=== PATIENT | female | born 1970 | race Caucasian/White ===

== ENCOUNTER → 2018-01-07 08:56 | Outpatient (CLI) | payer BC, SELFPAY ==
--- NOTE | 2018-01-07 11:03 | XR_ITS ---
XR foot LT min 3V HISTORY: ITS.REASON: LEFT HEEL PAIN ORDERING PHYSICIAN: Rosie Pacheco DPM PATIENT AGE: 47 years COMPARISON: None FINDINGS: Weightbearing views are performed. Mild hypertrophic changes are present along the medial aspect of the distal phalanx of the great toe No fracture or dislocation. No lytic or blastic change. There is normal mineralization.. The joint spaces are well-preserved. No significant degenerative/arthritic changes. No erosive changes evident. There is a small calcaneal spur measuring 6 mm without obvious erosive change. IMPRESSION: Small calcaneal spur otherwise negative
--- NOTE | 2018-01-07 11:03 | XR_ITS ---
XR foot RT min 3V HISTORY: ITS.REASON: LEFT HEEL PAIN ORDERING PHYSICIAN: Rosie Pacheco DPM PATIENT AGE: 47 years COMPARISON: None FINDINGS: Weightbearing views are performed. No fracture or dislocation. No lytic or blastic change. There is normal mineralization.. The joint spaces are well-preserved. No significant degenerative/arthritic changes. No erosive changes evident. There is a small calcaneal spur measuring 5 mm without obvious erosive change. There are some hypertrophic changes along the medial aspect of the distal phalanx of the great toe IMPRESSION: Small calcaneal spur otherwise negative right foot
== END ==
PROVIDERS: Visit Provider Podiatrist
DX: M72.2 Plantar fascial fibromatosis (principal); M79.672 Pain in left foot
CPT/HCPCS: 73630

== ENCOUNTER → 2018-06-07 10:44 | Outpatient (CLI) | payer BC, SELFPAY ==
[2018-06-07 11:37] LABS: Basophils % 0.6 % (0.1-2.0); Eosinophils # 0.6 K/mm3 (0.0-0.4); Eosinophils % 8.4 % (0.1-12.0); Hematocrit 35.2 % (37.0-47.0); Hemoglobin 11.9 g/dL (12.2-16.2); Lymphocytes # 1.2 K/mm3 (0.7-4.5); Lymphocytes % 17.1 K/mm3 (10-50); Mean Corpuscular HGB Conc 33.9 g/dL (31.8-35.4); Mean Corpuscular Hemoglobin 34.8 pg (27.0-31.2); Mean Corpuscular Volume 102.8 fl (81-99); Monocytes # 0.2 K/mm3 (0.1-1.0); Monocytes % 3.5 % (1.7-9.3); Neutrophils # 4.7 K/mm3 (1.8-7.8); Neutrophils % 70.4 % (37.0-80.0); Platelet Count 237 K/mm3 (142-424); Red Blood Count 3.43 M/mm3 (4.20-5.40); Red Cell Distribution Width 13.2 % (11.5-17.5); White Blood Count 6.7 K/mm3 (4.8-10.8)
[2018-06-07 12:16] LABS: Alanine Aminotransferase 22 U/L (12-78); Albumin Level 3.7 gm/dL (3.4-5.0); Albumin/Globulin Ratio 1.1 (1.1-1.8); Alkaline Phosphatase 88 U/L (46-116); Anion Gap 9.2 mEq/L (5-15); Aspartate Amino Transferase 9 U/L (15-37); Bilirubin,Total 0.2 mg/dL (0.2-1.0); Blood Urea Nitrogen 10 mg/dL (7-18); Calcium 8.3 mg/dL (8.5-10.1); Carbon Dioxide 29 mmol/L (21.0-32.0); Chloride 109 mmol/L (98-107); Chol/HDL Ratio 2.1 (1-3.5); Cholesterol 108 mg/dL (140-200); Creatinine,Serum 0.51 mg/dL (0.55-1.02); Estimated Glomerular Filt Rate 128 ml/min (>60); GFR (African American) 155 ML/MIN (>60); Globulin 3.4 gm/dl (1.3-3.2); Glucose 97 mg/dL (74-106); HDL Cholesterol 51 mg/dL (29-89); LDL Cholesterol 48 mg/dL (0-130); Potassium 4.2 mmoL/L (3.5-5.1); Sodium 143 mmol/L (136-145); Total Protein,Serum 7.1 gm/dL (6.4-8.2); Triglycerides 45 mg/dL (30-200); VLDL Cholesterol 9 mg/dL (0-40)
== END ==
PROVIDERS: Visit Provider Nurse Practitioner Family
DX: Z00.00 Encounter for general adult medical examination without abnormal findings (principal); I10 Essential (primary) hypertension
CPT/HCPCS: 36415; 80053; 80061; 85025

== ENCOUNTER → 2018-07-09 13:32 | Outpatient (CLI) | payer BC, SELFPAY ==
--- NOTE | 2018-07-09 13:35 | US_ITS ---
US transvaginal HISTORY: Dysfunctional uterine bleeding ITS.REASON: dub ORDERING PHYSICIAN: Khari Maier MD PATIENT AGE: 48 years Comparison: None FINDINGS: The uterus is 8 x 5 x 6 cm. The endometrium is thickened at 1.2 cm. There is a nabothian cyst. Right ovary is 3.5 x 2.8 x 3 cm and contains a 3 cm cyst. No obvious internal septations The blood flow to the right ovary. The left ovary is 2.2 x 1.7 cm and contains a 7 mm follicle. Blood flow present. There is a small amount cul-de-sac fluid. IMPRESSION: 1. Thickened endometrium. 2. 3 cm right ovarian cyst
== END ==
PROVIDERS: Family Provider Internal Medicine Adolescent Medicine; PCP Internal Medicine Adolescent Medicine; Visit Provider Obstetrics & Gynecology
DX: N93.8 Other specified abnormal uterine and vaginal bleeding (principal)
CPT/HCPCS: 76830

== ENCOUNTER → 2018-07-14 14:34 | Outpatient (CLI) | payer BC, SELFPAY ==
[2018-07-14 14:38] LABS: Microscopic, Urine URINE MICROSCOPIC (MICROSCOPIC)
[2018-07-14 15:00] LABS: Basophils # 0.1 K/mm3 (0-0.2); Eosinophils # 0.9 K/mm3 (0.0-0.4); Eosinophils % 13.1 % (0.1-12.0); Hematocrit 39.8 % (37.0-47.0); Hemoglobin 12.5 g/dL (12.2-16.2); Lymphocytes # 1.9 K/mm3 (0.7-4.5); Lymphocytes % 26.3 K/mm3 (10-50); Mean Corpuscular HGB Conc 31.4 g/dL (31.8-35.4); Mean Corpuscular Hemoglobin 32.2 pg (27.0-31.2); Mean Corpuscular Volume 102.3 fl (81-99); Mean Platelet Volume 8.1 fl (7.4-10.4); Monocytes # 0.3 K/mm3 (0.1-1.0); Monocytes % 4.4 % (1.7-9.3); Neutrophils # 3.9 K/mm3 (1.8-7.8); Neutrophils % 55.3 % (37.0-80.0); Platelet Count 260 K/mm3 (142-424); Red Blood Count 3.89 M/mm3 (4.20-5.40); Red Cell Distribution Width 14.6 % (11.5-17.5); White Blood Count 7.1 K/mm3 (4.8-10.8)
--- NOTE | 2018-07-14 15:00 | XR_ITS ---
XR chest 2V HISTORY: ITS.REASON: HTN ORDERING PHYSICIAN: Khari Maier MD PATIENT AGE: 48 years Technique: PA and lateral chest COMPARISON: PA and lateral chest FINDINGS: Stable chest with nothing definitely acute. The lungs appear clear with no active disease. Stable small calcified granuloma left upper lung with small calcified left hilar nodes. Heart maureen and mediastinal structures satisfactory.. Heart upper normal size. Chest wall and T-spine stable. Satisfactory. IMPRESSION stable chest nothing definitely acute.
[2018-07-14 15:08] LABS: Appearance,Urine CLEAR (Clear); Bilirubin,Urine Negative (Negative); Blood, Urine 2+ (Negative); Color,Urine YELLOW (Yellow); Glucose,Urine (UA) Negative (Negative); Ketones,Urine Negative (Negative); Leukocyte Esterase,Urine Negative (Negative); Nitrate,Urine Negative (Negative); Protein,Urine Negative (Negative)
[2018-07-14 15:35] LABS: Bacteria,Urine 2+ /lpf; WBC,Urine Occasional #/hpf (0-3)
[2018-07-14 15:45] LABS: Alanine Aminotransferase 19 U/L (12-78); Albumin Level 3.7 gm/dL (3.4-5.0); Albumin/Globulin Ratio 1.1 (1.1-1.8); Alkaline Phosphatase 83 U/L (46-116); Anion Gap 10.4 mEq/L (5-15); Aspartate Amino Transferase 8 U/L (15-37); Bilirubin,Total 0.1 mg/dL (0.2-1.0); Blood Urea Nitrogen 16 mg/dL (7-18); Calcium 8.5 mg/dL (8.5-10.1); Carbon Dioxide 31 mmol/L (21.0-32.0); Chloride 101 mmol/L (98-107); Creatinine,Serum 0.58 mg/dL (0.55-1.02); Estimated Glomerular Filt Rate 110 ml/min (>60); GFR (African American) 133 ML/MIN (>60); Globulin 3.4 gm/dl (1.3-3.2); Glucose 95 mg/dL (74-106); Potassium 4.4 mmoL/L (3.5-5.1); Sodium 138 mmol/L (136-145); Total Protein,Serum 7.1 gm/dL (6.4-8.2)
== END ==
PROVIDERS: Visit Provider Obstetrics & Gynecology
DX: Z01.818 Encounter for other preprocedural examination (principal); N93.8 Other specified abnormal uterine and vaginal bleeding; D25.9 Leiomyoma of uterus, unspecified; R10.2 Pelvic and perineal pain
CPT/HCPCS: 36415; 71046; 80053; 81001; 85025; 87086; 93005

== ENCOUNTER 2018-07-17 06:01 | Observation (INO) ==
--- NOTE | 2018-07-17 06:49 | Progress Note ---
[facility] Anesthesia Checklist - Patient Identification Patient Identification: Arm Band, Verbal (Name & ) - Structural Data Admitted From: Home Planned Operative Procedure/s: TVH, BSO Consent for Planned Operative Procedure(s) Verified: Yes Verified Documents: Surgical Consent, History and Physical - NPO Status Verified Time NPO: 22:30 - Additional verifications Patient : No Anesthesia Reactions: No - Airway Assessment C-Spine Mobility Assessed: Yes TMJ Mobility Assessed: Yes Dentition: Partials (lower) - Neurological Assessment Level of Consciousness: Awake Hx Seizures: No Numbness or tingling in extremities: No - Anesthesia Plan Anesthesia Risk discussed: Yes Anesthesia Plan: Verified ASA Class: III Anesthesia Type: General [facility] Anesthesia HX I have reviewed the patient's past medical history: Yes Medical History: Reports:: Anxiety, Chronic Obstructive Pulmonary Disease (COPD) , Hyperlipidemia, Hypertension Denies:: Cancer, Diabetes Mellitus Type 1, Diabetes Mellitus Type 2, Internal Pacemaker, MRSA, Seizures Other Medical History: Reports: Other (smokes tobacco). Denies: Blood Transfusion Reaction Laterality Cases: Bilateral: Other Other Surgeries: Yes: , Dilation and Curettage. No: Pacemaker Amputation: No Fractures: No *Family Hx:: No significant family history
--- NOTE | 2018-07-17 08:35 | Progress Note ---
[facility] Anesthesia Record Part II Discharge Time: 09:02 Destination: Obstetric Gynecology Dept PACU nurse assessment reviewed?: Yes Patient Condition:: Good Anesthesia Complications:: None
--- NOTE | 2018-07-17 08:35 | Progress Note ---
[facility] Anesthesia Record Part I Intake, IV Amount: 900 Estimated blood loss (mL): 300 Urine output (mL): 30 Blood Products used (#): none Blood Pressure: 113/71 SaO2: 98 Pulse Rate: 49 Respiratory Rate: 18 Temperature: 97.3 F Patient is:: Drowsy, Stable Stable to PACU at:: 08:32
--- NOTE | 2018-07-17 08:36 | Operative Note ---
Date of procedure: 07/17/18 Pre-op Diagnosis:: 1. Dysfunctional uterine bleeding. 2. Leiomyomata uteri. 3. Pelvic pain. 4. Right ovarian cyst. Post-op Diagnosis:: 1. Dysfunctional uterine bleeding. 2. Leiomyomata uteri. 3. Adenomyosis. 4. Pelvic pain. 5. Right ovarian cyst. Procedure performed:: Total vaginal hysterectomy and bilateral salpingo-oophorectomy Surgeon:: Khari Maier MD Cooky Packer(s):: Dr. Corral INSTRUMENT REPAIR TECHNICIAN:: Ck Bueno Anesthesia: GETA Estimated blood loss (mL): 300 Operative findings:: Boggy adenomyomatous uterus, with right ovarian cyst. Operative note:: After the patient was prepped and draped in the usual fashion and general anesthesia was administered, a weighted speculum was placed within the posterior fourchette of the vagina, and the cervix was grasped with a double- tooth tenaculum, and retracted toward the introitus. Descensus was moderate. The cervix was circumcised with a knife, and the vaginal mucosa was sharply and bluntly dissected free. A posterior colpotomy incision was made with Josef scissors, and the long lip of the weighted speculum was placed within the posterior peritoneum. The uterosacral ligaments on either side were Renetta clamped, and 1 Vicryl, as were the cardinal ligaments and uterine vessels. The anterior peritoneum was entered with Josef scissors, and a long right angle retractor was placed within it. The boggy uterus was flipped anteriorly, and the ovarian pedicles were crossclamped and cut, thus removing the uterine specimen. These pedicles were Renetta sutured, and then free tied with #1 Vicryl. The left ovary was more atrophic than the right, which contained a 4 cm clear cyst. Each tube showed evidence of previous ligation with Fallope- Rings. Each adnexa was grasped with a [place] clamp, and the infundibulopelvic ligament on either side was Renetta clamped, cut, and Renetta suture with #1 Vicryl, and then free tied with #1 Vicryl. Inspection of all the pedicles revealed them to be hemostatic. The posterior vaginal cuff was run unlocked with #1 Vicryl, to include the uterosacral ligament pedicles, and a Burgess fashion, to reduce the enterocele. The anterior peritoneum was grasped with a long Allis clamp, and closed with a running pursestring suture of 0 Vicryl, and pulled tight. The vaginal mucosa was closed with an anteroposterior running locked suture of #1 Vicryl. The urine was clear in the Medina catheter. The sponge and needle count was correct. Estimated blood loss was 300 cc. The patient tolerated the procedure well, and was taken to PACU in excellent condition. Condition: stable Disposition: PACU Specimens:: Uterus and both adnexa Complications:: None
[2018-07-17 09:57] LABS: Hemoglobin 12.7 g/dL (12.2-16.2)
--- NOTE | 2018-07-17 12:55 | Progress Note ---
Internal Medicine - PN: Subj *Date: 07/17/18 *Time: 12:54 (This is day of surgery. Surgery has been explained to the patient. She is afebrile. Her vital signs are stable. Blood pressure is somewhat elevated with moderate pain control issues at this time. Urine output is good. Impression: Stable.) Exam Vital signs and Labs for Last 24 Hours: Temp Pulse Resp BP Pulse Ox 97.6 F 60 16 178/87 98 07/17/18 10:30 07/17/18 12:30 07/17/18 12:30 07/17/18 12:30 07/17/18 12:30 Laboratory Results - last 24 hr 07/17/18 07:20: Urine HCG, Qual Negative 07/17/18 07:20: Urine Color Yellow, Urine Appearance Sl cloudy, Urine pH 6.0, Ur Specific [place] >= 1.030, Urine Protein Trace, Urine Glucose (UA) Negative, Urine Ketones Trace, Urine Blood Negative, Urine Nitrate Negative, Urine Bilirubin Negative, Urine Urobilinogen 1.0, Ur Leukocyte Esterase Negative, Urine RBC None, Urine WBC None, Ur Squamous Epith Cells 5-10, Urine Bacteria Trace, Hyaline Casts 3-5 07/17/18 09:35: Hgb 12.7, Hct 40.0 I & O for Last 24 hours: Intake & Output 07/15/18 07/16/18 07/17/18 07/18/18 11:59 11:59 11:59 11:59 Intake Total 975 / 975 Output Total 25 / 25 Balance 950 / 950 Weight 133 lb
--- NOTE | 2018-07-18 07:02 | Progress Note ---
Internal Medicine - PN: Subj *Date: 07/18/18 *Time: 07:01 (This is postop day #1. The patient is afebrile. Vital signs stable. Abdomen soft. Urine output good. Her Medina has been removed and she has not yet voided since then. Hemoglobin 12.7 g. Impression: Stable.) Exam Vital signs and Labs for Last 24 Hours: Temp Pulse Resp BP Pulse Ox 98.9 F 60 18 149/86 96 07/18/18 04:45 07/18/18 04:45 07/18/18 04:45 07/18/18 04:45 07/17/18 20:00 Laboratory Results - last 24 hr 07/17/18 07:20: Urine HCG, Qual Negative 07/17/18 07:20: Urine Color Yellow, Urine Appearance Sl cloudy, Urine pH 6.0, Ur Specific [place] >= 1.030, Urine Protein Trace, Urine Glucose (UA) Negative, Urine Ketones Trace, Urine Blood Negative, Urine Nitrate Negative, Urine Bilirubin Negative, Urine Urobilinogen 1.0, Ur Leukocyte Esterase Negative, Urine RBC None, Urine WBC None, Ur Squamous Epith Cells 5-10, Urine Bacteria Trace, Hyaline Casts 3-5 07/17/18 09:35: Hgb 12.7, Hct 40.0 I & O for Last 24 hours: Intake & Output 07/15/18 07/16/18 07/17/18 07/18/18 11:59 11:59 11:59 11:59 Intake Total 975 / 975 980 / 980 Output Total 500 / 500 Balance 950 / 950 480 / 480 Weight 133 lb
--- NOTE | 2018-07-18 10:18 | Pharmacy Consult Notes ---
[facility] Pharmacy VTE Monitoring - Patient Demographics Admission date: 07/17/18 Report Date: 07/18/18 Time: 10:17 Allergies/Adverse Reactions: Patient Allergies amoxicillin [AMOXICILLIN] Allergy (Unknown, Verified 07/16/18 13:29) I-RASH Height: 1.63 m Weight: 60.328 kg - VTE Risk Labs: VTE Related Lab Results Hgb 12.7 g/dL (12.2-16.2) 07/17/18 09:35 Hct 40.0 % (37.0-47.0) 07/17/18 09:35 - Prophylaxis VTE Prophylaxis Ordered?: Yes Types of VTE Prophylaxis: IPCS Knee High Location of Applied Device: Bilateral Lower Extremeties
--- NOTE | 2018-07-18 10:43 | Progress Note ---
Internal Medicine - PN: Subj *Date: 07/18/18 *Time: 10:42 (The patient is doing well. Hemoglobin 12.7 g. Medina is out and she is voiding well. She will be discharged today.) Exam Vital signs and Labs for Last 24 Hours: Temp Pulse Resp BP Pulse Ox 98.9 F 60 18 149/86 96 07/18/18 04:45 07/18/18 04:45 07/18/18 04:45 07/18/18 04:45 07/17/18 20:00 I & O for Last 24 hours: Intake & Output 07/15/18 07/16/18 07/17/18 07/18/18 11:59 11:59 11:59 11:59 Intake Total 975 / 975 980 / 980 Output Total 500 / 500 Balance 950 / 950 480 / 480 Weight 133 lb 133 lb
--- NOTE | 2018-07-18 10:45 | Discharge Summary ---
General - General Admission date:: 07/17/18 Discharge date: 07/18/18 (This 48-year-old white female was admitted for definitive treatment of dysfunctional uterine bleeding and pelvic pain. On the date of admission, she was taken to the operating room, where she underwent a total vaginal hysterectomy and bilateral salpingo-oophorectomy, without complications. Postoperatively, the patient is done well. She received Delestrogen 30 mg IM in PACU. She is now eating and ambulating, and is voiding well without her Medina. She is passing flatus, and her abdomen is soft. She is discharged home on the first postoperative day on Percocet 04/18 (#20), 1 p.o. every 46 hours as needed pain. She is to resume her normal medications and has been given appropriate instructions as to diet and exercise. She is to return the office in 2 weeks for follow-up. She is a smoker, but refuses smoking cessation patches.) Objective Vital signs: Temp Pulse Resp BP Pulse Ox 98.9 F 60 18 149/86 96 07/18/18 04:45 07/18/18 04:45 07/18/18 04:45 07/18/18 04:45 07/17/18 20:00 Discharge Plan - Patient Discharge Instructions - Follow up Plan Home Medications: Home Medications Medication Instructions Recorded Confirmed Type hydrocodone bitartrate ER 10 mg 10 mg PO Q12H 11/29/17 07/17/18 History capsule, oral only, extended rel 12 hr ranitidine 150 mg capsule 150 mg PO QHS 01/07/18 07/17/18 History venlafaxine ER 150 mg 150 mg PO ONCE 01/07/18 07/17/18 History tablet,extended release 24 hr nebivolol 20 mg tablet 20 mg PO DAILY 07/14/18 07/17/18 History cloNIDine HCl [cloNIDine 0.1mg 0.1 mg PO DAILY 07/16/18 07/17/18 History Tablet] Prescriptions/Medication Reconciliation: No Action hydrocodone bitartrate ER 10 mg capsule, oral only, extended rel 12 hr 10 mg PO Q12H venlafaxine ER 150 mg tablet,extended release 24 hr 150 mg PO ONCE ranitidine 150 mg capsule 150 mg PO QHS diclofenac 1 % topical gel 4 g TOPICAL QID #30 g nebivolol 20 mg tablet 20 mg PO DAILY cloNIDine HCl [cloNIDine 0.1mg Tablet] 0.1 mg PO DAILY
== END 2018-07-18 11:56 | disposition home or self-care (01) ==
LOC: OB 06:01 → OR 06:01
PROVIDERS: ADMIT Obstetrics & Gynecology; ATTEND Obstetrics & Gynecology
CPT/HCPCS: 36415; 81001; 81025; 85014; 85018; 96372; 96374; G0378; J0131; J1956; J2405; J2710; S0077

== ENCOUNTER → 2018-10-31 12:03 | Outpatient (CLI) | payer BC, SELFPAY ==
--- NOTE | 2018-10-31 12:07 | MR_ITS ---
MR head/brain wo con HISTORY: Severe headache, blurred vision with dizziness, right-sided headache ITS.REASON: MIGRAINE WITH AURA WITHOUT STATUS MIGRAINOSUS ORDERING PHYSICIAN: Ck Monge MD PATIENT AGE: 48 years Comparison: None TECHNIQUE: Standard multiplanar multiecho sequences are performed without contrast. FINDINGS: No midline shift, mass effect, intracranial hemorrhage, or hydrocephalus is evident. No evidence of acute infarction. There are scattered periventricular and subcortical T2 white matter hyperintensities in the cerebrum on both sides. These are more numerous on the right. They do not affect the corpus callosum or the optic tracts. The pituitary and optic chiasm have an unremarkable appearance as does the craniocervical junction and upper cervical cord. The hippocampal dry are unremarkable and temporal horns are symmetric. Cerebellopontine angles, cerebellum, and brainstem are unremarkable. There is near complete opacification of the sphenoid sinus on the right and moderate opacification of left sphenoid sinus with an air-fluid level. Moderate mucosal thickening involves the ethmoid sinuses. There is a small amount of fluid in both mastoid sinuses. IMPRESSION: 1. Scattered periventricular and subcortical T2 white matter hyperintensities in the cerebrum greater on the right. Migraine headache and or microangiopathic changes could cause this finding. Demyelinating process is included in the differential diagnosis. 2. Sinusitis with bilateral mastoid effusions
== END ==
PROVIDERS: PCP Internal Medicine Adolescent Medicine; Visit Provider Internal Medicine Adolescent Medicine
DX: G43.909 Migraine, unspecified, not intractable, without status migrainosus (principal)
CPT/HCPCS: 70551

== ENCOUNTER → 2019-01-02 12:47 | Outpatient (CLI) | payer BC, SELFPAY ==
[2019-01-02 14:28] LABS: Alanine Aminotransferase 20 U/L (12-78); Albumin Level 3.4 gm/dL (3.4-5.0); Alkaline Phosphatase 75 U/L (46-116); Anion Gap 13.7 mEq/L (5-15); Aspartate Amino Transferase 12 U/L (15-37); Bilirubin,Total 0.2 mg/dL (0.2-1.0); Blood Urea Nitrogen 22 mg/dL (7-18); Calcium 8.7 mg/dL (8.5-10.1); Carbon Dioxide 26 mmol/L (21.0-32.0); Chloride 107 mmol/L (98-107); Creatinine,Serum 0.62 mg/dL (0.55-1.02); Estimated Glomerular Filt Rate 102 ml/min (>60); GFR (African American) 123 ML/MIN (>60); Globulin 3.5 gm/dl (1.3-3.2); Glucose 89 mg/dL (74-106); Potassium 3.7 mmoL/L (3.5-5.1); Sodium 143 mmol/L (136-145); Total Protein,Serum 6.9 gm/dL (6.4-8.2)
== END ==
PROVIDERS: Visit Provider Internal Medicine Adolescent Medicine
DX: E87.6 Hypokalemia (principal)
CPT/HCPCS: 36415; 80053; 83735

== ENCOUNTER → 2019-09-15 12:54 | Outpatient (CLI) | payer OTHER, SELFPAY ==
--- NOTE | 2019-09-15 12:59 | CT_ITS ---
PROCEDURE: CT SINUS WO CON CLINICAL HISTORY: Nasal septum perforation Chronic postnasal drainage in sinus blockage, hard palate perforation COMPARISON: CT SOFT TISSUE NECK W CON from 08/21/2019 TECHNIQUE: Axial images obtained with sagittal and coronal reformats. All CT scans at the facility use one or more dose reduction, viz: automated exposure control, ma/kV adjustment per patient size (including targeted exams where dose is matched to indication, i.e. head), or iterative reconstruction technique. FINDINGS: The frontal sinuses are unremarkable. There is mild mucosal thickening of the ethmoid sinuses and moderate mucosal thickening of the right maxillary sinus with mild mucosal thickening of the left maxillary sinus. Mild mucosal thickening of the sphenoid sinus on the left. The inferior aspect of the nasal septum is missing with continuity between both right left nasal passages. And DISH in, there is a defect within the right hard palate. This defect measures 4 mm. The nasal septal defect measures 14 mm. Scattered small foci of gas are present within the mucosa/secretions within the nasal cavity on the right. It is uncertain whether the these air bubbles are within the tissue itself or within areas of mucous. Please correlate with direct visualization. No adenopathy or sinus air-fluid levels. The mastoid sinuses have an unremarkable appearance. The orbits appear unremarkable. IMPRESSION: 1. Prominent defect within the cartilaginous nasal septum inferiorly and anteriorly consistent with nasal septal perforation. 2. Associated perforation/defect within the hard palate on the right. Scattered gas bubbles are present around the defect and may be either within the mucosa itself or adjacent mucous. Gas-forming infection would be included in the differential diagnosis. Please correlate with physical exam and direct visualization. 3. Mild paranasal sinus disease Dictated by: Bud Amezcua MD 09/16/2019 07:49 Electronically signed by Bud Amezcua MD in [place] 09/17/2019 06:21
== END ==
PROVIDERS: PCP Internal Medicine Adolescent Medicine; Visit Provider Otolaryngology
DX: J34.89 Other specified disorders of nose and nasal sinuses (principal)
CPT/HCPCS: 70486

== ENCOUNTER → 2019-10-05 14:13 | Outpatient (CLI) | payer OTHER, SELFPAY ==
[2019-10-05 14:46] LABS: Basophils # 0.1 K/mm3 (0-0.2); Basophils % 0.8 % (0.1-2.0); Eosinophils # 0.8 K/mm3 (0.0-0.4); Eosinophils % 11.8 % (0.1-12.0); Hematocrit 40.4 % (37.0-47.0); Lymphocytes # 1.6 K/mm3 (0.7-4.5); Lymphocytes % 23.5 % (10-50); Mean Corpuscular HGB Conc 32.3 g/dL (31.8-35.4); Mean Corpuscular Hemoglobin 33.7 pg (27.0-31.2); Mean Corpuscular Volume 104.4 fl (81-99); Mean Platelet Volume 9.4 fl (7.4-10.4); Monocytes # 0.3 K/mm3 (0.1-1.0); Neutrophils # 4.1 K/mm3 (1.8-7.8); Neutrophils % 59.7 % (37.0-80.0); Platelet Count 273 K/mm3 (142-424); Red Blood Count 3.87 M/mm3 (4.20-5.40); Red Cell Distribution Width 13.2 % (11.5-17.5); White Blood Count 6.9 K/mm3 (4.8-10.8)
[2019-10-05 16:34] LABS: Amphetamine/Metha Screen,Urine Negative ng/mL (<1000); Barbiturates Screen,Urine Negative ng/mL (<200); Benzodiazepines Screen,Urine Negative ng/mL (<200); Cannabinoid Screen,Urine Negative ng/mL (<50); Cocaine Screen,Urine Negative ng/mL (<300); Methadone Screen,Urine Negative ng/mL (<300); Opiate Screen,Urine Positive ng/mL (<300); Phencyclidine Screen,Urine Negative ng/mL (<25)
[2019-10-09 21:11] LABS: Epstein-Barr DNA Quant, PCR Negative copies/mL (Negative)
== END ==
PROVIDERS: Visit Provider Otolaryngology
DX: J34.89 Other specified disorders of nose and nasal sinuses (principal)
CPT/HCPCS: 36415; 80305; 85025; 87799

== ENCOUNTER → 2020-12-30 08:21 | Outpatient (CLI) | payer OTHER, SELFPAY ==
--- NOTE | 2020-12-30 08:21 | MM_ITS ---
PROCEDURE: MM DIG SCREENING MAMM BI W/CAD Digital Breast Tomosynthesis Included CLINICAL INDICATION: SCREENING There is no personal or family history of breast cancer. The patient currently is on estrogen. COMPARISON: MG MAMMO SCREENING DIGITAL BILAT from 03/20/2016, outside films from [facility] TECHNIQUE: Standard CC and MLO images and 3D Tomosynthesis was obtained. R2 CAD reviewed. FINDINGS: Moderate diffuse fibroglandular densities are seen in the central portions of both breast and the findings are bilateral and symmetrical. There is no suspicious lesion in either breast and no suspicious microcalcifications. IMPRESSION: Moderate breast density with no suspicious lesions seen BI-RAD Category: 1 Negative FOLLOW-UP: 1YR 1 Year Follow-up (A letter has been sent to the patient regarding results of the study.) Dictated by: Dr. Jack Lozoya MD 01/06/2021 09:40 Dr. Jack Lozoya MD in [place] 01/06/2021 09:40
== END ==
PROVIDERS: PCP Internal Medicine Adolescent Medicine; Visit Provider Obstetrics & Gynecology
DX: Z12.31 Encounter for screening mammogram for malignant neoplasm of breast (principal)
CPT/HCPCS: 77063; 77067

== ENCOUNTER → 2021-02-22 08:01 | Outpatient (CLI) | payer OTHER, SELFPAY ==
--- NOTE | 2021-02-22 08:06 | CT_ITS ---
PROCEDURE: CT LUNG SCREENING CLINICAL INDICATION: H/O NICOTINE DEPENDENCE COMPARISON: CT CHWWO CT CHEST W/WO CONTRAST from 02/15/2016 TECHNIQUE: The exam was performed on a GE Light Speed [address] scanner using 2.90 mGy CTDI. A low dose helical CT CHEST was performed on a multi-detector scanner. All CT scans at the facility use one or more dose reduction, viz: automated exposure control, ma/kV adjustment per patient size (including targeted exams where dose is matched to indication, i.e. head), or iterative reconstruction technique. The LDCT was performed in a facility that meets the criteria for the screening program. Data regarding this exam was submitted to ACR which is an approved registry. The order for this exam indicates that it came as a result of a lung cancer screening counseling shard decision-making visit that included all the elements required of such a visit including smoking cessation. The radiologist interpreting this exam meets the CMS criteria for the LDCT lung cancer screening program. The exam is reported using the Lung-RADS classification scale and reported to the ACR registry. NOTE: This study was performed for the specific purposes of lung cancer screening and is not an alternative to diagnostic chest CT. RADIATION DOSE: CTDI vol(CT dose Index-volume) = 2.90mG DLP (Dose Length Product) = mGcm FINDINGS: Centrilobular emphysematous changes are noted bilaterally. Focal calcified granuloma in the left upper lobe. Minor atelectasis is noted in the right middle lobe and lingula. 2 millimeter nodule noted in the right lower lobe (series 4, image 47). Small subpleural nodules in the right upper lobe measuring up to 4 millimeters. 4 millimeter nodule in the left lower lobe for (4, 44) no focal consolidation, pleural effusions or pneumothorax. Central tracheobronchial tree is patent. The heart size is normal. No pericardial effusions. Few scattered mediastinal lymph nodes are noted measuring up to 7 millimeters in short axis diameter, not significant by size criteria. Calcified lymph nodes noted in the left hilum and AP window. Evaluation of the hilar limited due to lack of intravenous contrast although no gross lymphadenopathy is noted. Visualized osseous structures are unremarkable. The visualized upper abdominal solid organs are unremarkable within the limitations of unenhanced low-dose study. The thyroid gland is unremarkable. OTHER FINDINGS: No other pertinent findings evident. IMPRESSION: Lung-RADS Category 2 Benign Appearance or Behavior Follow-up: No follow-up is recommended as per modified Fleischner criteria. Low-dose lung screening in 18-24 months is recommended. Dictated by: Roxana Grey 02/22/2021 11:00 Roxana Grey in [facility] 02/22/2021 11:00
== END ==
PROVIDERS: PCP Internal Medicine Adolescent Medicine; Visit Provider Internal Medicine Adolescent Medicine
DX: Z87.891 Personal history of nicotine dependence (principal); Z12.2 Encounter for screening for malignant neoplasm of respiratory organs
CPT/HCPCS: 71271

== ENCOUNTER 2021-08-01 15:11 | Emergency (ER) | payer OTHER, SELFPAY ==
[2021-08-01 17:00] VITALS: BP 121/89; PULSE 86; RESP 19; TEMP 37.1; O2SAT 98; BMI 27.1
[2021-08-01 17:03] VITALS: BP 121/89; PULSE 86; RESP 19; TEMP 37.1
--- NOTE | 2021-08-01 17:28 | HMH.EDUTC ---
[facility] [place] Clinical Impression: Exposure to COVID-19 virus Sinusitis Qualifiers: Sinusitis location: unspecified location Chronicity: acute Recurrence: non-recurrent Qualified Code(s): J01.90 - Acute sinusitis, unspecified Disposition: Home, Self-Care Condition on Discharge: Good Instructions: DI for Sinusitis Additional Instructions: Drink plenty of fluids. Take tylenol or ibuprofen for pain or fever. Take the medications as directed. Follow up with your regular doctor. GO TO THE ER FOR ANY WORSENING SYMPTOMS Quarantine until you know the results of your covid-19 test. If it is positive, the health department should call you and give you further instructions about your length of Quarantine and other things. Notify your school or workplace of your results and follow their instructions regarding return to work/school. Prescriptions: Benzonatate [Tessalon Perle 100mg Cap] 100 mg PO TIDP PRN #30 cap PRN Reason: Cough Transmission Status: Received by [facility] Azithromycin [Z-Patrice 250mg Tab*] 250 mg PO UD DOSE PK #6 tab Transmission Status: Received by [facility] Referrals: Ck Monge MD [Primary Care Provider] - Time of Disposition: 17:34 Medical Decision Making - Medical Records Medical records reviewed: No: I reviewed the patient's medical records. - Ric Inquiry Pt receiving controlled substance: No Vital Signs: 08/01/21 17:00 08/01/21 17:03 Temperature 98.7 F 98.7 F Temperature Source Oral Pulse Rate 86 Pulse Rate [Left] 86 Respiratory Rate 19 19 Blood Pressure 121/89 Blood Pressure [Right Arm] 121/89 Blood Pressure Mean [Right Arm] 99 02 Sat by Pulse Oximetry 98 Orders (Tests/Meds): ORDERS Category Date Time Status Covid-19 Nasal PCR ([facility]) Routine Lab 08/01/21 16:54 Received [facility] [place] - General Stated complaint: covid test Time Seen by Provider: 08/01/21 17:29 Mode of Arrival: Ambulatory Source of Information: Patient Limitations: No Limitations Description of Symptoms (Recalled from Triage Doc. by RN): pt c/o coughing, nasal drainage and NOBLES HEENT Symptoms (Recalled from RN notes): Yes (runny nose and NOBLES) Resp Symptoms (Recalled from RN notes): Yes (cough) Skin Symptoms (Recalled from RN notes): No MS Symptoms (Recalled from RN notes): No Functional Status (Recalled from RN notes): na - History of Present Illness Provider Complaint: She states that for the past 2 days she has had sinus pressure, scratchy sore throat, chilling and she has felt bad. She was vaccinated against covid-19 in April. She has been exposed to someone with covid around 5 days ago. - Related Data Home Medications Medication Instructions Recorded Confirmed ranitidine HCl 150 mg capsule 150 mg PO QHS 01/07/18 12/27/20 venlafaxine 150 mg tablet,extended 150 mg PO DAILY 01/07/18 12/27/20 release 24 hr nebivolol 20 mg tablet 20 mg PO DAILY 07/14/18 12/27/20 cloNIDine HCL [cloNIDine 0.1mg 0.1 mg PO BID 07/16/18 12/27/20 Tablet] Previous Rx's Medication Instructions Recorded diclofenac sodium 1 % topical gel 4 g TOPICAL QID #30 g 01/07/18 Oxycodone HCl [OxyIR 5mg tablet] 5 mg PO Q4HP PRN #20 tab 07/18/18 montelukast 10 mg tablet 10 mg PO QPM #60 tab 10/05/19 estradiol 2 mg tablet 2 mg PO DAILY 30 Days #30 tab 12/27/20 Azithromycin [Z-Patrice 250mg Tab*] 250 mg PO UD DOSE PK #6 tab 08/01/21 Benzonatate [Tessalon Perle 100mg 100 mg PO TIDP PRN #30 cap 08/01/21 Cap] Allergies Allergy/AdvReac Type Severity Reaction Status Date / Time amoxicillin [AMOXICILLIN] Allergy Unknown I-RASH Verified 12/27/20 13:47 - Worker's Comp Is this a Worker's Comp case?: No [facility] History - Hepatitis A Screen Drug use history?: No High risk sexual behaviors?: No History of sexually transmitted infection?: No Currently employed?: No Childcare worker?: No Do you have indoor plumbing?: Yes Do you have electricity?: Yes Attestation state
== END 2021-08-01 17:37 | disposition home or self-care (01) ==
PROVIDERS: Emergency Provider Nurse Practitioner Family; PCP Internal Medicine Adolescent Medicine
DX: U07.1 COVID-19 (principal)
CPT/HCPCS: 99202; G0463; U0003

== ENCOUNTER 2024-05-12 13:00 | Outpatient (CLI) | payer OTHER, SELFPAY ==
[2024-05-12 13:40] VITALS: PULSE 88; PULSE 93
[2024-05-12] MEDS: ALBUTEROL 0.083% 2.5 MG/3 ML NEB IH (13:40)
== END 2024-05-12 23:59 | disposition home or self-care (01) ==
PROVIDERS: PCP Internal Medicine Adolescent Medicine; Visit Provider Internal Medicine Pulmonary Disease
DX: R06.09 Other forms of dyspnea (principal); J44.9 Chronic obstructive pulmonary disease, unspecified
CPT/HCPCS: 94060; 94618; 94640; 94726; 94729; J7613